=== PATIENT | male | born 1955 | race Caucasian/White ===

== ENCOUNTER 2019-08-03 08:46 | Day surgery (SDC) | payer BC ==
[~2019-08-03] VITALS: Ht 175.3 cm; Wt 104.2 kg
[~2019-08-03 08:46] MED LIST: ASPI325EC; CALCA500S6; Hytrin1 MG; MELATONIN10 M6; NAPR220; SIMV10; Super B Comple1 EAC2
--- NOTE | 2019-08-03 10:35 | NUR ---
08/03/19 1035 Alfreda Cleveland 1015 UPDATED PATIENT OM WAIT TIME
== END 2019-08-03 11:36 | disposition home or self-care (01) ==
LOC: ORSCSDS 08:46
PROVIDERS: Internal Medicine Gastroenterology
PROC: 0DJD8ZZ Inspection of Lower Intestinal Tract, Via Natural or Artificial Opening Endoscopic (ICD-10-PCS; principal; 2019-08-03 10:15)
DX: Z12.11 Encounter for screening for malignant neoplasm of colon (principal); Z86.010 Personal history of colon polyps; K57.30 Diverticulosis of large intestine without perforation or abscess without bleeding; K64.8 Other hemorrhoids; Z86.73 Personal history of transient ischemic attack (TIA), and cerebral infarction without residual deficits; Z79.82 Long term (current) use of aspirin; E78.5 Hyperlipidemia, unspecified; Z79.899 Other long term (current) drug therapy
CPT/HCPCS: J0690; J2704; J7120

== ENCOUNTER 2021-06-15 12:07 | Inpatient (IN) | payer BC ==
[~2021-06-15] VITALS: Ht 175.3 cm; Wt 99.8 kg
[~2021-06-15 12:07] MED LIST changes: -CALCA500S6; +CALCA500S6 PO; -Hytrin1 MG; +Hytrin1 MG PO
[2021-06-15 12:26] LABS: BASOPHILS ABSOLUTE AUTO 0.05 K/mm3 (0.00-0.23); BASOPHILS PERCENT AUTO 1 % (0-2); EOSINOPHILS ABSOLUTE AUTO 0.21 K/mm3 (0.00-0.68); EOSINOPHILS PERCENT AUTO 3 % (0-6); Hematocrit 46.9 % (37.0-53.0); Hemoglobin 16.6 g/dL (13.5-17.5); IMMATURE GRAN ABSOLUTE AUTO 0.01 K/mm3 (0.00-0.10); IMMATURE GRAN PERCENT AUTO 0 % (0-1); LYMPHOCYTES ABSOLUTE AUTO 1.86 K/mm3 (0.84-5.20); LYMPHOCYTES PERCENT AUTO 30 % (21-46); MONOCYTES ABSOLUTE AUTO 0.52 K/mm3 (0.16-1.47); MONOCYTES PERCENT AUTO 8 % (4-13); Mean Corpuscular HGB 31.4 pg (26.0-34.0); Mean Corpuscular HGB Conc 35.4 g/dL (31.5-36.5); Mean Corpuscular Volume 89 fL (80-100); Mean Platelet Volume 10.4 fL (9.1-12.4); NEUTROPHILS PERCENT AUTO 58 % (41-73); Platelet Count 241 K/mm3 (150-400); RDW Coefficient Variation 12.4 % (11.7-14.2); RDW Standard Deviation 40.5 fL (35.1-46.3); Red Blood Cell Count 5.29 M/mm3 (4.30-5.90); White Blood Cell Count 6.25 K/mm3 (4.00-11.30)
[2021-06-15 12:46] LABS: Alanine Aminotransfer (ALT/SGP 30 U/L (12-78); Albumin, Blood 3.7 g/dL (3.4-5.0); Alk Phos 65 U/L (50-136); Anion Gap 4 mmol/L (6-16); Aspartate Aminotrans (AST/SGOT 21 U/L (12-37); Bilirubin, Total 0.6 mg/dL (0.1-1.0); Blood Urea Nitrogen 11 mg/dL (8-24); Bun/Creatinine Ratio 13.3 (12.0-20.0); CO2, Blood 27 mmol/L (21-32); Calcium, Blood 8.9 mg/dL (8.5-10.1); Chloride, Blood 111 mmol/L (98-108); Creatinine, Blood 0.83 mg/dL (0.60-1.20); Globulin, Blood 3.6 g/dL (2.2-4.0); Glomerular Filtration Rate >60 (60-); Glucose, Blood 95 mg/dL (70-99); Sodium, Blood 142 mmol/L (136-145); Total Protein, Blood 7.3 g/dL (6.4-8.2)
[2021-06-15 13:07] LABS: International Normalized Ratio 1.04; Prothrombin Time Results 10.9 Sec (9.7-11.5)
--- NOTE | 2021-06-16 05:02 | NUR ---
SHIFT SUMMARY RECEIVED PT FROM ER. PT ALERT AND ORIENTED. NEUROLGICAL ASSESSEMENT REMAINS UNCHANGED. STILL HAVE WEAKNESS IN LEFT UPPER EXTREMITTY. BEDSIDE SWALLOWING EVALUATION WAS INTACT. STILL NPO WAITING FOR SPEECH EVALUATION. CALL LIGHT CANDY TAMAYO. KEEP MONITORING.
[2021-06-16 05:43] LABS: BASOPHILS ABSOLUTE AUTO 0.05 K/mm3 (0.00-0.23); BASOPHILS PERCENT AUTO 1 % (0-2); EOSINOPHILS ABSOLUTE AUTO 0.18 K/mm3 (0.00-0.68); EOSINOPHILS PERCENT AUTO 3 % (0-6); Hematocrit 46.1 % (37.0-53.0); IMMATURE GRAN ABSOLUTE AUTO 0.02 K/mm3 (0.00-0.10); IMMATURE GRAN PERCENT AUTO 0 % (0-1); LYMPHOCYTES ABSOLUTE AUTO 1.36 K/mm3 (0.84-5.20); LYMPHOCYTES PERCENT AUTO 21 % (21-46); MONOCYTES ABSOLUTE AUTO 0.42 K/mm3 (0.16-1.47); MONOCYTES PERCENT AUTO 7 % (4-13); Mean Corpuscular HGB 31.1 pg (26.0-34.0); Mean Corpuscular HGB Conc 34.7 g/dL (31.5-36.5); Mean Corpuscular Volume 90 fL (80-100); Mean Platelet Volume 10.7 fL (9.1-12.4); NEUTROPHILS ABSOLUTE AUTO 4.36 K/mm3 (1.96-9.15); NEUTROPHILS PERCENT AUTO 68 % (41-73); Platelet Count 230 K/mm3 (150-400); RDW Coefficient Variation 12.6 % (11.7-14.2); RDW Standard Deviation 41.3 fL (35.1-46.3); Red Blood Cell Count 5.15 M/mm3 (4.30-5.90); White Blood Cell Count 6.39 K/mm3 (4.00-11.30)
[2021-06-16 06:42] LABS: Alanine Aminotransfer (ALT/SGP 29 U/L (12-78); Albumin, Blood 3.6 g/dL (3.4-5.0); Albumin/Globulin Ratio 1.1 (0.8-1.8); Alk Phos 65 U/L (50-136); Anion Gap 8 mmol/L (6-16); Aspartate Aminotrans (AST/SGOT 25 U/L (12-37); Bilirubin, Total 0.7 mg/dL (0.1-1.0); Blood Urea Nitrogen 10 mg/dL (8-24); Bun/Creatinine Ratio 12.2 (12.0-20.0); CHOL/HDL RATIO 2.8; CO2, Blood 25 mmol/L (21-32); Calcium, Blood 9.3 mg/dL (8.5-10.1); Chloride, Blood 110 mmol/L (98-108); Cholesterol 143 mg/dL (50-200); Creatinine, Blood 0.82 mg/dL (0.60-1.20); Globulin, Blood 3.2 g/dL (2.2-4.0); Glomerular Filtration Rate >60 (60-); Glucose, Blood 86 mg/dL (70-99); HDL Cholesterol 51 mg/dL (>39); LDL/HDL RATIO 1.5; Low Density Lipoprotein Chol 77 mg/dL (0-110); Sodium, Blood 143 mmol/L (136-145); Total Protein, Blood 6.8 g/dL (6.4-8.2); Triglycerides 76 mg/dL (30-160); Very Low Density Lipoprot Chol 15 mg/dL (6-32)
--- NOTE | 2021-06-16 07:22 | NUR ---
BEDSIDE SWALLOW EVALUATION DONE. PT TOLERATES WELL PROCEDURE AND PASSED
--- NOTE | 2021-06-17 05:02 | NUR ---
SHIFT SUMMARY PT RESTING ON BED QUIETLY. NO ACUTE EVENT OVER NIGHT. WEAK ACCOUNTING INTERN ON LEFT HAND. VITALS SIGN WHITIN NORMAL RANGE. KEEP MONITORING
[2021-06-17] MEDS ORDERED: ASPI81CH PO (08:24)
[2021-06-17] MEDS ORDERED: ATOR40TA PO (08:24)
[2021-06-17] MEDS ORDERED: CLOP75 PO (08:25)
--- NOTE | 2021-06-17 14:59 | NUR ---
DISCHARGE SUMMARY: PT EDUCATED ON DC PLAN. SIGNED SCRIPT SENT WITH PT FOR OUTPATIENT PT/OT. PT EDUCATED ON DC MEDICATIONS. PT BELONGINGS PACKED UP AND SENT WITH PATIENT. ZIO PATCH ON BEFORE PT LEFT. PT ESCORTED TO POV VIA WC BY CODY.
== END 2021-06-17 14:59 | disposition home or self-care (01) | DRG 65 ==
LOC: ER 12:07 → ERHOLD 12:08 → MEDS 20:00
PROVIDERS: Emergency Medicine; Family Medicine; ADMIT Hospitalist
DX: I63.511 Cerebral infarction due to unspecified occlusion or stenosis of right middle cerebral artery (principal); I69.354 Hemiplegia and hemiparesis following cerebral infarction affecting left non-dominant side; N40.0 Benign prostatic hyperplasia without lower urinary tract symptoms; M16.9 Osteoarthritis of hip, unspecified; R03.0 Elevated blood-pressure reading, without diagnosis of hypertension; I69.392 Facial weakness following cerebral infarction; Z98.52 Vasectomy status; Z98.890 Other specified postprocedural states; Z79.82 Long term (current) use of aspirin; Z79.899 Other long term (current) drug therapy
CPT/HCPCS: 36415; 70450; 70496; 70498; 70551; 80053; 80061; 82947; 83036; 84484; 85025; 85610; 92610; 93005; 93010; 93246; 93306; 97112; 97116; 97161; 97165; 99285-25; A9270; J0360; J1650; J3101; Q9967

== ENCOUNTER 2021-09-22 09:08 | Day surgery (SDC) | payer BC ==
[~2021-09-22] VITALS: Ht 175.3 cm; Wt 107.0 kg
[~2021-09-22 09:08] MED LIST changes: +ASPI81CH PO; +ATOR40TA PO; +Acetaminophen650 M1; +CLOP75 PO; +HYDROCHLOROTH12.5 MG; -Hytrin1 MG PO; +Hytrin2 MG
--- NOTE | 2021-09-22 12:26 | NUR ---
PT DRESSED, IV DC'D INTACT, DRINKING JUICE WELL, DR VILLANUEVA IN TO DISCUSS PLAN OF CARE, PT DC'D BY THIS RN BY WC, COUSIN DRIVING PT HOME
== END 2021-09-22 23:30 | disposition home or self-care (01) ==
LOC: MHTC 09:08
DX: Q21.1 Atrial septal defect (principal); I63.511 Cerebral infarction due to unspecified occlusion or stenosis of right middle cerebral artery; I10 Essential (primary) hypertension; E78.5 Hyperlipidemia, unspecified
CPT/HCPCS: 93312; 93325; A9270; J2704; J7030

== ENCOUNTER 2023-12-02 08:08 | Day surgery (SDC) | payer MEDICARE, OTHER ==
[~2023-12-02] VITALS: Ht 172.7 cm; Wt 102.5 kg
[~2023-12-02 08:08] MED LIST changes: +ASPI325 PO; -Acetaminophen650 M1; +Acetaminophen650 M1 PO; -HYDROCHLOROTH12.5 MG; +HYDROCHLOROTH12.5 MG PO; -Hytrin2 MG; +Hytrin2 MG PO; +Lactated Ringer's 1,000 ML IV ONE; +OXYC5 PO; +PROM25 PO; +SULTRIDS PO; +ZOCOR20 MG PO; +propofoL 50 ML IV ONE
[2023-12-02] MEDS ORDERED: XARELTO20 MG (08:32)
[2023-12-02] MEDS ORDERED: Lactated Ringer's 1,000 ML IV ONE (09:22)
[2023-12-02 10:49] VITALS: BP 121/79
== END 2023-12-02 10:45 | disposition home or self-care (01) ==
LOC: ORSCSDS 08:08
PROVIDERS: Internal Medicine Gastroenterology
PROC: 0DBK8ZX Excision of Ascending Colon, Via Natural or Artificial Opening Endoscopic, Diagnostic (ICD-10-PCS; principal; 2023-12-02 09:30)
PROC: 0DBM8ZX Excision of Descending Colon, Via Natural or Artificial Opening Endoscopic, Diagnostic (ICD-10-PCS; principal; 2023-12-02 09:30)
DX: Z12.11 Encounter for screening for malignant neoplasm of colon (principal); Z86.010 Personal history of colon polyps; D12.2 Benign neoplasm of ascending colon; D12.4 Benign neoplasm of descending colon; I10 Essential (primary) hypertension; E78.5 Hyperlipidemia, unspecified; I47.10 Supraventricular tachycardia, unspecified; Z79.82 Long term (current) use of aspirin; Z79.01 Long term (current) use of anticoagulants
CPT/HCPCS: 88305; J2704; J7120